=== PATIENT | female | born 1955 | race Caucasian/White ===

== ENCOUNTER → 2019-11-02 | Outpatient (CLI) | payer MEDICARE ==
[~2019-11-02] MED LIST: DURAGESIC1 EAC4; HYDROCODONE-AP1 EAC2 PO; LIDODERM700 MG; Z.0.BENTYL20 MG PO; Z.1.COLESTIPOL HCL1 PO; [UNRECOGNIZED DRUG - OTHER] PO
--- NOTE | 2019-11-02 10:16 | Diagnostic Imaging Report ---
EXAM: CHEST 2 VIEWS DATE: 11/02/2019 9:50 AM INDICATION: Pneumonia COMPARISON: 04/11/2009 FINDINGS: The trachea is midline. The lungs are symmetrically expanded without evidence for large focal consolidation, pneumothorax, or significant pleural effusion. Please note in this patient with reported history of pneumonia, no recent prior examinations are available for comparison. The cardiomediastinal silhouette and pulmonary vasculature are within normal limits. Atherosclerotic calcifications are noted within the aortic arch. No acute osseous abnormality is identified. The surrounding tissues are unremarkable. IMPRESSION: No acute cardiopulmonary process identified. Signed by: Dr. Guillermo Mark MD on 11/02/2019 10:13 AM
== END ==
LOC: RAD 09:36
PROVIDERS: ATTEND General Practice
DX: J18.9 Pneumonia, unspecified organism (principal)
CPT/HCPCS: 71046

== ENCOUNTER → 2019-11-23 | Outpatient (CLI) | payer OTHER ==
[~2019-11-23] MED LIST changes: +IOPAMIDOL 370 MG/ML 200 ML INFUS..BTL INJ ONE; +SODIUM CHLORIDE 0.9% 50ML 50 ML ONE
[2019-11-23 08:25] LABS: BLOOD UREA NITROGEN 9 mg/dL (7-26); BUN/CREATININE RATIO 12 (6-25); CREATININE, SERUM 0.75 mg/dL (0.57-1.11); EST GLOMERULAR FILTRATION RATE > 60 ML/MIN (60-)
--- NOTE | 2019-11-23 09:44 | Diagnostic Imaging Report ---
History: Enlarging right parotid area mass. 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 History of smoking. Comparison studies: None Technique: Axial, coronal and sagittal images from the skull base to the thoracic inlet. Coronal and sagittal images reconstructed from the axial data. Dose modulation, iterative reconstruction, and/or weight based adjustment of the mA/kV was utilized to reduce the radiation dose to as low as reasonably achievable. Intravenous contrast: 100 cc of Omnipaque 300. Findings: Right parotid gland: Lobulated enhancing 3.0 x 2.2 x 2.1 cm (SI x AP x TV) mass which contains small cystic foci in the superficial lobe/tail of the right parotid gland. Additional enhancing 2.0 cm mass or lymph node present medial to the larger mass described above lies just posterior to the retromandibular vein at the junction of the deep and superficial lobes Additional enhancing 0.8 cm nodule or lymph node inferior to the dominant mass more inferiorly within the tail of the right parotid gland. Left parotid gland: Changes of prior partial left parotidectomy. No left parotid mass identified. Upper aerodigestive tract: No abnormalities. Lymph nodes: Mildly prominent bilateral suprahyoid jugular chain level IIA lymph nodes which otherwise maintain their reniform shape and fatty bridget and are without concerning radiographic features. Additional scattered subcentimeter suprahyoid and prior jugular chain lymph nodes are also without concerning radiographic features. Vessels: Patent carotid and vertebral arteries. The right vertebral artery is congenitally hypoplastic. Calcified and soft plaque at the left carotid bulb do not result in significant stenosis. Submandibular glands: Normal in size and symmetric. No masses. Thyroid gland: Homogeneous, normal in size, no mass. Orbits: No abnormalities. Paranasal sinuses: Clear. Temporal bones: Clear middle ear mastoid cavities bilaterally. The fat surrounding the facial nerve at the right stylomastoid foramen is maintained without gross evidence of perineural invasion. Skull base and facial bones: Intact. Included lung apices: Mild scarring with pleural thickening and calcifications bilaterally which may be sequela of prior infection. Cervical spine: No fracture or lytic or blastic lesion. Disc height is maintained. Patent canal and foramina. IMPRESSION: 1. Enhancing 3.1 cm right parotid mass in the superficial lobe as well as two additional smaller enhancing lesions or enlarged lymph nodes medial and inferior to the dominant mass. Though differential includes Warthin's tumors, cannot differentiate from other more aggressive parotid neoplasm by imaging and FNA is necessary to further evaluate. 2. Prior left partial parotidectomy. No left parotid mass identified. 3. Mildly prominent right level IIA lymph nodes which are otherwise without concerning radiographic features and may be reactive. Signed by: Dr. Cedric Benedict M.D. on 11/23/2019 9:41 AM
== END ==
LOC: CT 07:23
PROVIDERS: ATTEND Otolaryngology
DX: K11.8 Other diseases of salivary glands (principal)
CPT/HCPCS: 36415; 70491; 82565; 84520; Q9967

== ENCOUNTER → 2019-12-07 | Outpatient (CLI) | payer OTHER ==
[~2019-12-07] MED LIST changes: -IOPAMIDOL 370 MG/ML 200 ML INFUS..BTL INJ ONE; +LIDOCAINE HCL 1% LOCAL INJ 20 ML VIAL ONE; -SODIUM CHLORIDE 0.9% 50ML 50 ML ONE
--- NOTE | 2019-12-07 09:47 | Diagnostic Imaging Report ---
PROCEDURE: Ultrasound-guided biopsy Procedural Personnel Attending physician(s): Parrish Ortega MD Fellow physician(s): None Resident physician(s): None Advanced practice provider(s): None Pre-procedure diagnosis: Right parotid mass Post-procedure diagnosis: Same Indication: Histopathologic diagnosis Previous biopsy of same target (QCDR): No Additional clinical history: None Complications: No immediate complications. IMPRESSION: Ultrasound-guided biopsy of right parotid mass. Plan: Specimen(s) sent for evaluation. PROCEDURE SUMMARY: - Percutaneous US-guided right parotid mass biopsy - Additional procedure(s): None PROCEDURE DETAILS: Pre-procedure Reference imaging for biopsy target: Neck CT 11/23/2019 Consent: Informed consent for the procedure including risks, benefits and alternatives was obtained and time-out was performed prior to the procedure. Preparation: The site was prepared and draped using maximal sterile barrier technique including cutaneous antisepsis. Anesthesia/sedation Level of anesthesia/sedation: No sedation Anesthesia/sedation administered by: Independent trained observer under attending supervision with continuous monitoring of the patient?s level of consciousness and physiologic status Total intra-service sedation time (minutes): NA Imaging prior to biopsy The patient was positioned supine. Initial ultrasound was performed. Biopsy target: - Maximal diameter (cm): 2.0 - Location: Right parotid gland Other findings: None Biopsy Local anesthesia was administered. Under US guidance, the biopsy needle was advanced to the target and biopsy was performed. Coaxial needle: NA Fine needle aspiration device: Chiba Fine needle size: 22g Number of FNA specimens: 4 On-site biopsy touch preparation: Yes Additional sampling recommendations: None Needle removal The biopsy needle was removed and a sterile dressing was applied. Tract embolization: None Imaging following biopsy Immediate post-biopsy ultrasound was performed. Post-biopsy imaging findings: No hematoma Additional Details Additional description of procedure: None Equipment details: None Specimens removed: Biopsy samples as detailed above Estimated blood loss (mL): Less than 10 Standardized report: [email or web address] Attestation Signer name: Parrish Ortega MD I attest that I was present for the entire procedure. I reviewed the stored images and agree with the report as written. Signed by: Parrish Ortega MD on 12/07/2019 9:44 AM
== END ==
LOC: US 07:47
PROVIDERS: ATTEND Otolaryngology
DX: K11.8 Other diseases of salivary glands (principal)
CPT/HCPCS: 10005; 88172; 88173; 88305; J2001

== ENCOUNTER 2020-01-18 05:05 | Observation (INO) | payer MEDICARE, OTHER ==
[2020-01-13 10:31] LABS: BASOPHILS # (AUTO) 0.1 (0.0-0.1); BASOPHILS % 0.8 % (0.0-1.0); EOSINOPHILS # (AUTO) 0.3 (0.0-0.4); EOSINOPHILS % 3.1 % (0.0-6.0); HEMATOCRIT 38.8 % (34.2-44.1); LYMPHOCYTES # (AUTO) 2.2 (1.0-3.2); LYMPHOCYTES % 24.9 % (18.0-39.1); MEAN CORPUSCULAR HGB CONC 33.5 g/dL (31-35); MEAN CORPUSCULAR VOLUME 89.4 fL (81-99); MONOCYTES # (AUTO) 0.7 (0.2-0.8); MONOCYTES % 7.8 % (4.4-11.3); NEUTROPHILS # (AUTO) 5.6 (2.1-6.9); NEUTROPHILS % 63.2 % (38.7-80.0); PLATELET COUNT 328 x10e3/uL (140-360); RED BLOOD COUNT 4.34 x10e6/uL (3.6-5.1); RED CELL DISTRIBUTION WIDTH 13.6 % (11.7-14.4)
[~2020-01-18] VITALS: Ht 165.1 cm; Wt 71.2 kg
[~2020-01-18 05:05] MED LIST changes: +CYCLOBENZAPRINE10 MG PO; +GABAPENTIN300 MG PO; -LIDOCAINE HCL 1% LOCAL INJ 20 ML VIAL ONE
[2020-01-18] MEDS ORDERED: EPINEPHRINE HCL 1:1000 1ML 1 MG/ML AMP ONE (06:38)
[2020-01-18] MEDS ORDERED: SODIUM CHLORIDE 0.9% INJ 10 ML VIAL ONE (06:38)
[2020-01-18] MEDS ORDERED: CLINDAMYCIN 600MG / 50ML 50 ML IV ONE (07:31)
[2020-01-18] MEDS ORDERED: HYDROMORPHONE 1MG/1ML INJ ONE (09:40)
[2020-01-18] MEDS ORDERED: FENTANYL CITRATE/PF 100MCG/2 ML INJ ONE ×2 (09:59→15:06)
[2020-01-18 10:58] VITALS: BP 153/81
[2020-01-18 11:32] VITALS: BP 153/81
[2020-01-18] MEDS ORDERED: D5.45%NS/KCL 20MEQ 1,000 ML IV ONE (12:30)
[2020-01-18] MEDS ORDERED: ONDANSETRON HCL INJ 2MG/ML 2ML 2 MG/ML VIAL IV PRN (12:30)
[2020-01-18 13:06] VITALS: BP 149/78
[2020-01-18] MEDS: HYDROCODONE/APAP 5MG-325MG TAB PO PRN ×3 (13:11→21:31)
[2020-01-18] MEDS ORDERED: KETAMINE HCL INJ 50 MG/ML 10 ML VIAL ONE (15:06)
[2020-01-18] MEDS ORDERED: MIDAZOLAM HCL 2 MG/2 ML VIAL ONE (15:06)
[2020-01-18 16:10] VITALS: BP 142/76
[2020-01-18 20:00] VITALS: BP 143/77
[2020-01-18] MEDS ORDERED: ONDANSETRON HCL INJ 2MG/ML 2ML 2 MG/ML VIAL ONE (20:01)
[2020-01-18] MEDS ORDERED: DEXAMETHASONE SOD PHOS INJ 4 MG/ML VIAL ONE (20:01)
[2020-01-18] MEDS ORDERED: GLYCOPYRROLATE INJ 0.2 MG/ML VIAL ONE (20:01)
[2020-01-18] MEDS ORDERED: SEVOFLURANE INHAL SOLN 250 ML PEN BTL ONE (20:01)
[2020-01-18] MEDS ORDERED: NEOSTIGMINE 1 MG/ML 10ML VIAL ONE (20:01)
[2020-01-18] MEDS ORDERED: ROCURONIUM BROMIDE 10 MG/ML 5ML VIAL IV ONE (20:01)
[2020-01-18] MEDS ORDERED: LIDOCAINE HCL 2% JELLY 5 ML TUBE ONE (20:01)
[2020-01-18] MEDS ORDERED: PROPOFOL IV EMULSION 10 MG/ML 20 ML VIAL ONE (20:01)
[2020-01-18] MEDS ORDERED: LIDOCAINE HCL 2% LOCAL INJ 5 ML SDV VIAL INJ ONE (20:01)
[2020-01-18 21:00] VITALS: BP 143/77
[2020-01-19 04:41] VITALS: BP 124/71
[2020-01-19 08:00] VITALS: BP 148/86
[2020-01-19 08:30] VITALS: BP 148/86
== END 2020-01-19 08:41 | disposition home or self-care (01) ==
LOC: OR 05:05 → PACU V 09:38 → MED/SURG 10:35
PROVIDERS: ADMIT Otolaryngology; ATTEND Otolaryngology
DX: D11.0 Benign neoplasm of parotid gland (principal); Z88.5 Allergy status to narcotic agent; Z88.0 Allergy status to penicillin; Z88.2 Allergy status to sulfonamides; Z88.8 Allergy status to other drugs, medicaments and biological substances; K21.9 Gastro-esophageal reflux disease without esophagitis; Z11.59 Encounter for screening for other viral diseases
CPT/HCPCS: 36415; 42415; 85025; 88307; 88331; 93005; G0378 ×2; J0171; J1100; J1170; J2001 ×2; J2250; J2405; J2704; J2710; J3010; U0002; 88305

== ENCOUNTER → 2020-02-03 | Outpatient (CLI) | payer OTHER ==
--- NOTE | 2020-02-03 09:18 | Diagnostic Imaging Report ---
Exam: Bone mineral density study. History: Osteopenia. Comparison: None Discussion: Evaluation of the left hip and lumbar spine was performed utilizing DEXA Hologic bone densitometer. The study is technically adequate. Left hip total bone mineral density: 0.631gm/cm2, T-score is -2.5, Z-score is -1.5. Left hip femoral neck bone mineral density: 0.548gm/cm2, T-score is -2.7, Z-score is -1.3. Lumbar spine total bone mineral density:0.713gm/cm2, T-score is-2.8, Z-score is -1.2. Impression: 1. Osteoporosis of the left hip, fracture risk is I 2. Osteoporosis of the lumbar spine, fracture risk is high Least significant change (LSC) for bone mineral density as provided by [employer] is 0.023 g/cm2 for lumbar spine and 0.027 g/cm2 for total hip. 10 -year fracture risk per WHO Fracture Risk Assessment Tool (FRAX) for: Not reported because some T-scores at or below -2.5 The patient's fracture risk is compared to an age-matched control. Medical evaluation for secondary causes of low bone bone mineral density may be appropriate. Correlate clinically for the necessity and timing of the next bone mineral density study. Signed by: Dr. Fredi Broderick M.D. on 02/03/2020 9:14 AM
== END ==
LOC: DX 08:15
PROVIDERS: ATTEND General Practice
DX: E89.40 Asymptomatic postprocedural ovarian failure (principal); M81.0 Age-related osteoporosis without current pathological fracture
CPT/HCPCS: 77080

== ENCOUNTER → 2020-03-14 | Outpatient (CLI) | payer OTHER | LOC: MAMMO 08:50 | PROVIDERS: ATTEND General Practice | DX: Z12.31 Encounter for screening mammogram for malignant neoplasm of breast (principal) | CPT/HCPCS: 77067 ==

== ENCOUNTER → 2021-04-17 | Outpatient (CLI) | payer MEDICARE | LOC: MAMMO 09:20 | PROVIDERS: ATTEND Family Medicine | DX: Z12.31 Encounter for screening mammogram for malignant neoplasm of breast (principal) | CPT/HCPCS: 77067 ==